=== PATIENT | male | born 1945 | race Caucasian/White ===

== ENCOUNTER 2022-07-10 09:31 | Outpatient (CLI) | payer OTHER | END 2022-07-10 09:42 | disposition home or self-care (01) | LOC: LAB 09:31 | PROVIDERS: ATTEND Internal Medicine Cardiovascular Disease | DX: N39.0 Urinary tract infection, site not specified (principal); N41.0 Acute prostatitis; E03.8 Other specified hypothyroidism; E11.9 Type 2 diabetes mellitus without complications; I10 Essential (primary) hypertension; A64 Unspecified sexually transmitted disease ==

== ENCOUNTER 2022-11-27 08:59 | Outpatient (CLI) | payer OTHER | END 2022-11-27 09:00 | disposition home or self-care (01) | LOC: LAB 08:59 | PROVIDERS: ATTEND Internal Medicine Cardiovascular Disease | DX: E11.9 Type 2 diabetes mellitus without complications (principal); E78.00 Pure hypercholesterolemia, unspecified; E78.1 Pure hyperglyceridemia; R07.9 Chest pain, unspecified; I50.20 Unspecified systolic (congestive) heart failure; E03.8 Other specified hypothyroidism; Z79.01 Long term (current) use of anticoagulants ==

== ENCOUNTER 2024-01-21 08:13 | Outpatient (CLI) | payer OTHER ==
[2024-01-21 09:53] LABS: HEMATOCRIT 40.2 % (39.0-48.0); HEMOGLOBIN 13.8 g/dL (13-16.00); MEAN CELL VOLUME 91.2 fL (80.0-100.00); MEAN CORPUSCULAR HEMOGLOBIN 31.3 pg (27.00-32.0); MEAN CORPUSCULAR HGB CONC 34.3 g/dl (32.0-36.0); PLATELET COUNT 136 K/uL (150-450); RED BLOOD COUNT 4.41 M/uL (4.00-6.00)
[2024-01-21 10:12] LABS: URINE APPEARANCE Clear; URINE BILIRRUBIN Negative (NEGATIVE); URINE BLOOD Negative; URINE COLOR Yellow; URINE GLUCOSE Negative (NEGATIVE); URINE KETONE Negative (NEGATIVE); URINE LEUKOCYTE Negative; URINE NITRATE Negative; URINE PROTEIN Negative (NEGATIVE); URINE UROBILINOGEN 0.2 E.U./dl
[2024-01-21 10:13] LABS: URINE BACTERIA 2.5 uL (0.0-1933); URINE EPITHELIAL CELLS 0.2 uL (0.0-38.8); URINE RBC 4.7 uL (0.0-20.8); URINE WBC 0.4 uL (0.0-23.2)
[2024-01-21 10:21] LABS: ALBUMIN 3.7 gm/dL (3.4-5.0); ALKALINE PHOSPHATASE 51 U/L (50-136); ALT/SGPT 46 U/L (12-78); ANION GAP 7 (10.0-20.0); AST/SGOT 34 U/L (15-37); BILIRUBIN TOTAL 0.51 mg/dL (0.3-1.2); BLOOD UREA NITROGEN 16 mg/dL (7-18); BUN CREA RATIO 21 (7.0-25.0); CALCIUM 8.9 mg/dL (8.5-10.1); CARBON DIOXIDE 31 mEq/L (21-32); CHLORIDE 108 mmol/L (98-107); CHOL HDL RATIO 1.7 (0-5.0); CHOLESTEROL 169 mg/dL (0-200); CREATININE SERUM 0.77 mg/dL (0.70-1.30); GFR 97.46; GLOBULINA 3.1 G/DL (2.4-3.5); GLUCOSE FASTING 95 mg/dL (65-100); HDL 98 mg/dl (40-60); LDL 62 mg/dl (0-130); OSMOLALITY SERUM 284 MOSM/KG (275-295); POTASSIUM 4.16 mEq/L (3.5-5.1); PROSTATIC SPECIFIC ANTIGEN 0.012 NG/ML (0.010-4.00); SODIUM 142 mmol/L (136-145); TOTAL PROTEIN 6.8 gm/dL (6.4-8.2); TRIGLYCERIDES 46 mg/dL (0-150); VLDL 9 (0-39)
[2024-01-21 10:22] LABS: C-REACTIVE PROTEIN < 0.29 MG/DL (0.00-0.29)
[2024-01-21 10:26] LABS: ERYTHROCYTE SEDIMENTATION RATE 7 mm/hr
== END 2024-01-21 08:51 | disposition home or self-care (01) ==
LOC: LAB 08:13
PROVIDERS: ATTEND Internal Medicine Cardiovascular Disease
DX: C61 Malignant neoplasm of prostate (principal); I10 Essential (primary) hypertension; E78.1 Pure hyperglyceridemia

== ENCOUNTER 2024-12-29 08:42 | Outpatient (CLI) | payer OTHER ==
[2024-12-29 11:22] LABS: BASO % 0.8 % (0.1-1.2); EOS # 0.07 (0.04-0.54); EOS % 1.8 % (0.7-7.0); LYMPH # 1.24 (1.18-3.74); LYMPH % 31.5 % (19.3-53.1); MEAN PLATELET VOLUME 11.70 fl (9.4-12.4); MONO # 0.42 (0.24-0.82); MONO % 10.7 % (4.7-12.5); NEUT # 2.17 (1.56-6.13); NEUT % 54.9 % (34.0-71.1); RED CELL DISTRIBUTION WIDTH 12.2 % (11.6-14.4)
[2024-12-29 11:56] LABS: ALT/SGPT 33 U/L (12-78); AST/SGOT 30 U/L (15-37); BILIRUBIN TOTAL 0.41 mg/dL (0.3-1.2); BUN CREA RATIO 19 (7.0-25.0); CHOL HDL RATIO 1.8 (0-5.0); CREATININE SERUM 0.78 mg/dL (0.70-1.30); GFR 96.02; GLOBULINA 3.1 G/DL (2.4-3.5); GLUCOSE FASTING 92 mg/dL (65-100); HDL 96 mg/dl (40-60); LDL 58 mg/dl (0-130); OSMOLALITY SERUM 285 MOSM/KG (275-295); TSH 1.180 uIU/mL (0.358-3.74); VLDL 14 (0-39)
[2024-12-29 12:03] LABS: URINE BILIRRUBIN NEGATIVE (NEGATIVE); URINE BLOOD NEGATIVE; URINE GLUCOSE NEGATIVE (NEGATIVE); URINE KETONE NEGATIVE (NEGATIVE); URINE LEUKOCYTE NEGATIVE; URINE NITRATE NEGATIVE; URINE PROTEIN NEGATIVE (NEGATIVE); URINE UROBILINOGEN 0.2 E.U./dl
[2024-12-29 12:05] LABS: PROSTATIC SPECIFIC ANTIGEN < 0.010 NG/ML (0.010-4.00)
[2024-12-29 12:21] LABS: URINE APPEARANCE CLEAR; URINE COLOR YELLOW
[2024-12-29 12:22] LABS: URINE BACTERIA SOME; URINE CRYSTALS NEGATIVE /HPF; URINE EPITHELIAL CELLS NONE SEEN /HPF; URINE MUCUS NEGATIVE; URINE RBC 0-3 /HPF; URINE WBC 0-2 /hpf
== END 2024-12-29 10:37 | disposition home or self-care (01) ==
LOC: LAB 08:42
DX: E78.5 Hyperlipidemia, unspecified (principal); E11.9 Type 2 diabetes mellitus without complications; E78.1 Pure hyperglyceridemia; I10 Essential (primary) hypertension; N39.0 Urinary tract infection, site not specified; N41.9 Inflammatory disease of prostate, unspecified; Z80.1 Family history of malignant neoplasm of trachea, bronchus and lung; E03.8 Other specified hypothyroidism